=== PATIENT | male | born 1970 | race African-American/Black ===

== ENCOUNTER 2016-06-06 08:11 | Inpatient (IN) | payer BC ==
[~2016-06-06] VITALS: Ht 180.3 cm; Wt 98.9 kg
[2016-06-06] VITALS (11 sets, daily range): BP systolic 114–132; BP diastolic 49–90
[~2016-06-06 08:11] MED LIST: BUPIVACAINE-EPI 0.25%-1:200000 50 ML VIAL. ONE; CEFAZOLIN 2GM PREMIX 50 ML IV PRN; FENTANYL PF 100 MCG/2 ML VIAL. IV PRN; IV RINGERS,LACTATED 1000ML 1,000 ML IV SCH; LIDOCAINE 1% 1 ML SYRINGE. ID PRN; MORPHINE SULFATE 2 MG/ML DISP.SYRIN. IV PRN; ONDANSETRON PF 4 MG/2 ML VIAL. IV PRN; PRED20TA PO; PROAIR HFA8.5 GM INH; PROCHLORPERAZINE 10 MG/2 ML VIAL. IV PRN
[2016-06-06] MEDS ORDERED: LISI-334 PO (08:40)
[2016-06-06] MEDS ORDERED: PROPOFOL 20 ML IV ONE (08:50)
[2016-06-06] MEDS ORDERED: DEXAMETHASONE SOD PHOS 20 MG/5 ML VIAL. ONE (08:50)
[2016-06-06] MEDS ORDERED: MIDAZOLAM HCL 2 MG/2 ML VIAL. ONE (08:50)
[2016-06-06] MEDS ORDERED: ONDANSETRON PF 4 MG/2 ML VIAL. ONE (08:50)
[2016-06-06] MEDS ORDERED: FENTANYL PF 250 MCG/5 ML VIAL. ONE (08:50)
[2016-06-06] MEDS ORDERED: MULT-208 PO (08:50)
[2016-06-06] MEDS ORDERED: LIDOCAINE 2% 100 MG/5 ML DISP.SYRIN. ONE (08:50)
[2016-06-06] MEDS ORDERED: ROCURONIUM 50 MG/5 ML VIAL. ONE ×2 (08:50→09:52)
[2016-06-06] MEDS ORDERED: SEVOFLURANE 61 TO 120 MINUTES. IH ONE ×2 (08:51→10:36)
[2016-06-06] MEDS ORDERED: ACETAMINOPHEN INTRAVENOUS 100 ML IV ONE (08:54)
--- NOTE | 2016-06-06 09:01 | PDOC1 ---
History and Physical Date of Admission Date of Admission DATE: 06/06/16 TIME: 08:57 Identification/Chief Complaint Chief Complaint Painful bulge left groin Source Source: Patient History of Present Illness History of Present Illness 46 yo male with complaints of painful bulge left groin. Present for several years but getting worse with activity. Past Medical History Cardiovascular: HTN Past Surgical History Past Surgical History: Hernia Repair (right, and umbilical hernia repairs) Family History Family History: No Significant Social History Smoke: No ALCOHOL: rare Drugs: None Current Medications Current Medications Current Medications Ondansetron HCl (Zofran) 4 mg PRN Q6HRS PRN IV Nausea; Start 06/06/16 at 07:00 ; Stop 06/07/16 at 06:59 Fentanyl Citrate (Fentanyl 2ml Vial) 25 mcg PRN Q5MIN PRN IV MILD PAIN; Start 06/06/16 at 07:00; Stop 06/07/16 at 06:59 Fentanyl Citrate (Fentanyl 2ml Vial) 50 mcg PRN Q5MIN PRN IV MODERATE PAIN; Start 06/06/16 at 07:00; Stop 06/07/16 at 06:59 Morphine Sulfate 1 mg 1 mg PRN Q10MIN PRN IV SEVERE PAIN; Start 06/06/16 at 07: 00; Stop 06/07/16 at 06:59 Lactated Ringer's (Iv Lactated Ringers) 1,000 ml @ 0 mls/hr Q0M IV ; Start at 07:00; Stop 06/06/16 at 18:59 Lidocaine HCl 2 ml 1X PRN PRN ID IV START; Start 06/06/16 at 07:00; Stop at 06:59 Hydromorphone HCl (Dilaudid) 0.5 mg PRN Q10MIN PRN IV SEVERE PAIN, Second choice; Start 06/06/16 at 07:00; Stop 06/07/16 at 06:59 Prochlorperazine Edisylate 5 mg 5 mg PACU PRN PRN IV NAUSEA; Start 06/06/16 at 07:00; Stop 06/07/16 at 06:59 Cefazolin Sodium/ Dextrose (Ancef 2gm Premix) 50 ml @ 100 mls/hr 1X PREOP PRN IV PRIOR TO PROCEDURE; Start 06/06/16 at 06:00; Stop 06/06/16 at 18:00 Bupivacaine HCl/ Epinephrine Bitart (Marcaine-Epi 0.25%-1:890018) 50 ml STK-MED ONCE .ROUTE ; Start 06/06/16 at 07:18; Stop 06/06/16 at 07:19; Status DC Fentanyl Citrate (Fentanyl 5ml Vial) 250 mcg STK-MED ONCE .ROUTE ; Start at 08:50; Stop 06/06/16 at 08:51; Status DC Midazolam HCl (Versed) 2 mg STK-MED ONCE .ROUTE ; Start 06/06/16 at 08:50; Stop 06/06/16 at 08:51; Status DC Rocuronium Guthrie (Zemuron) 50 mg STK-MED ONCE .ROUTE ; Start 06/06/16 at 08:50 ; Stop 06/06/16 at 08:51; Status DC Dexamethasone Sodium Phosphate (Decadron) 20 mg STK-MED ONCE .ROUTE ; Start at 08:50; Stop 06/06/16 at 08:51; Status DC Ondansetron HCl (Zofran) 4 mg STK-MED ONCE .ROUTE ; Start 06/06/16 at 08:50; Stop 06/06/16 at 08:51; Status DC Lidocaine HCl 100 mg 100 mg STK-MED ONCE .ROUTE ; Start 06/06/16 at 08:50; Stop 06/06/16 at 08:51; Status DC Propofol (Diprivan) 20 ml @ As Directed STK-MED ONCE IV ; Start 06/06/16 at 08: 50; Stop 06/06/16 at 08:51; Status DC Sevoflurane 60 ml 60 ml STK-MED ONCE IH ; Start 06/06/16 at 08:51; Stop at 08:52; Status DC Acetaminophen (Ofirmev) 100 ml @ As Directed STK-MED ONCE IV ; Start 06/06/16 at 08:54; Stop 06/06/16 at 08:55; Status DC Active Scripts Active Proair Hfa Inhaler (Albuterol Sulfate) 8.5 Gm Hfa.aer.ad 1 Puff INH PRN Q6HRS PRN Reported Multi-Day Vitamins (Multivitamin) 1 Each Tablet 1 Tab PO DAILY Lisinopril 20 Mg Tablet 1 Tab PO DAILY Allergies Allergies: Coded Allergies: No Known Drug Allergies (Unverified , 06/04/16) ROS Genitourinary: YES Pain (left groin) Physical Exam General: Alert, Oriented X3, Cooperative, No acute distress HEENT: Atraumatic, PERRLA, EOMI Lungs: Clear to auscultation, Normal air movement Heart: RRR, no gallops, no murmurs Abdomen: Normal bowel sounds, Soft, No tenderness Male Genitals Exam: hernia (left) Rectal Exam: not examined Extremities: No clubbing, No cyanosis, No edema Skin: No significant lesion Neuro: Normal speech Psych/Mental Status: Mental status NL Vitals Vitals Vital Signs Date Time Temp Pulse Resp B/P Pulse Ox O2 Delivery O2 Flow Rate FiO2 06/06/16 08:46 98.5 80 20 158/91 96 Room Air 98.5 VTE Prophylaxis Ordered VTE Prophylaxis Devices: Yes VTE Pharmacological Prophylaxi: Contraindicated Assessment/Plan Assessment/Plan Left inguinal hernia Plan robotic assisted LIH repair with mesh. BETO KNIGHT MD Jun 06, 2016 09:01
[2016-06-06] MEDS ORDERED: SEVOFLURANE > 120 MINUTES. IH ONE ×2 (10:35→10:51)
[2016-06-06] MEDS ORDERED: GLYCOPYRROLATE 1 MG/5 ML VIAL. ONE (10:35)
[2016-06-06] MEDS ORDERED: NEOSTIGMINE METHYLSULFATE 5 MG/5 ML SYRINGE. ONE (10:35)
--- NOTE | 2016-06-06 11:09 | PDOC ---
BRIEF OPERATIVE NOTE Date: Jun 06, 2016 Pre-Op Diagnosis LIH Post-Op Diagnosis LIH and small bowel adhesions to umbilical hernia mesh with erosion into small bowel Procedure Performed Dx L/S with lysis of adhesions converted to open procedure with small bowel resection and removal of foreign body Surgeon Javy Anesthesia Type: General Blood Loss 30ml Specimens Obtained foreign body (mesh) Findings small bowel densely adhesed to previously placed mesh with erosion of the mesh into the small bowel Complications None BETO KNIGHT MD Jun 06, 2016 11:09
[2016-06-06] MEDS ORDERED: ONDANSETRON PF 4 MG/2 ML VIAL. IV PRN (11:15)
[2016-06-06] MEDS ORDERED: 0.9 % SODIUM CHLORIDE 10 ML DISP.SYRIN. IV PRN (11:15)
[2016-06-06] MEDS ORDERED: OXYCODONE/APAP 5/325 TABLET. PO PRN (11:15)
[2016-06-06] MEDS: FENTANYL PF 100 MCG/2 ML VIAL. IV PRN ×4 (11:22→12:18)
[2016-06-06] MEDS: KETOROLAC 15 MG/ML VIAL. IV SCH ×2 (12:25→17:21)
[2016-06-06] MEDS: MORPHINE SULFATE 2 MG/ML DISP.SYRIN. IV PRN (12:34)
[2016-06-06] MEDS: HYDROMORPHONE 2 MG/ML VIAL. IV PRN ×2 (12:52→13:17)
--- NOTE | 2016-06-06 14:16 | OP ---
DATE OF SURGERY: 06/06/2016 PREOPERATIVE DIAGNOSIS: Left inguinal hernia. POSTOPERATIVE DIAGNOSES: Left inguinal hernia, Adhesions to foreign body at the umbilicus with adhesed small bowel and foreign body eroded into the small bowel. SURGEON: Vincent Knight MD PROCEDURE: Diagnostic laparoscopy, laparoscopic lysis of adhesions converted to exploratory laparotomy with removal of foreign body and small bowel resection. INDICATIONS: The patient is a 46-year-old gentleman who was admitted in the hospital today for robotic-assisted laparoscopic left inguinal hernia repair. Procedure of this was explained to the patient in detail. Risks and benefits were also discussed including bleeding, infection, injury to intra-abdominal contents, possibly necessitating further open operations. Alternatives of this procedure were also discussed with the patient who seemed to understand and gave verbal and written consent to have the procedure performed. DESCRIPTION OF PROCEDURE: The patient was taken to the operating room and placed in the supine position, general anesthesia was initiated. Once the patient was asleep and intubated, he was then placed in the low lithotomy position. His abdomen was prepped and draped in the usual sterile fashion using ChloraPrep. An area just above the umbilicus was injected with 0.25% Marcaine with epinephrine. Incision was made with an 11 blade scalpel and a Veress needle was placed within the abdomen. On attempting to provide a pneumoperitoneum, there was some difficulty, was not insufflating, so at this point, placed a 5-mm Visiport under direct visualization, left mid abdomen and created a pneumoperitoneum. A 5-mm camera was placed within the abdomen. The abdomen was inspected. It was noted at the mid abdomen at the umbilicus that there was a lot of adhesions to the anterior abdominal wall with some foreign material hanging from the abdominal wall with a loop of bowel densely adherent to this material. At this point, 2 more 5-mm ports were placed, one in the epigastrium, one in the left upper abdomen. Using a grasper and EndoShears scissors, several of these adhesions were taken down until all that was left was, what appeared to be a piece of mesh and a loop of bowel densely adherent to the mesh. It was felt that this could not be resected laparoscopically, so converted to an open procedure. A midline incision was made just below the umbilicus to just above the umbilicus, carried down through the subcutaneous tissue, electrocautery for hemostasis. The abdomen was entered just above the umbilicus. A finger was placed. The loop of bowel was grasped and the incision was further opened protecting the bowel from injury. At this point, the mesh was then excised sharply from the fascia. Once the bowel and the mesh were freed up completely, it appeared that the mesh had eroded into the bowel and that there would be no way the bowel from the mesh without an enterotomy. So at this point, a small bowel resection was done, approximately 3 inches of bowel, the proximal and distal ends of this bowel were stapled and transected. The mesentery was tied with 4-0 silk ties and transected. The bowel and the mesh which were densely adherent together were sent for pathology. A ltie-li-edvl anastomosis was completed with the small bowel with a stapled anastomosis. The enterotomy was then closed with interlocking 3-0 Vicryl suture and oversewn with 3-0 silk Lemberts. It was returned to the abdomen and the fascia was closed with a running 0 looped Novafil. The skin was reapproximated with 4-0 subcuticular Monocryl at the midline incision and all port sites. It was felt at this point since there was open bowel, this was clean contaminated case, not to proceed with left inguinal hernia repair with mesh. The patient was awakened, extubated in the operating room, taken to recovery in stable condition. All sponge, instrument, and needle counts listed as correct. ESTIMATED BLOOD LOSS: 30 mL. VINCENT KNIGHT MD DR: ELLA/scott JOB#: [id number] / [id number] Baltazar Alves
[2016-06-06] MEDS: IV DEXTROSE 5%-LACT RINGERS 1,000 ML IV SCH (14:55)
[2016-06-07] MEDS: KETOROLAC 15 MG/ML VIAL. IV SCH ×4 (01:00→17:48)
[2016-06-07] MEDS: IV DEXTROSE 5%-LACT RINGERS 1,000 ML IV SCH ×3 (01:08→17:48)
[2016-06-07] MEDS: MORPHINE SULFATE 2 MG/ML DISP.SYRIN. IV PRN ×3 (03:02→19:47)
[2016-06-07 03:34] VITALS: BP 112/58
[2016-06-07 05:01] LABS: BASO % 0 % (0-3); EOS % 0 % (0-3); HEMATOCRIT 43.8 % (39.0-53.0); HEMOGLOBIN 14.3 g/dL (13.0-17.5); LYMPH # 0.7 x10^3/uL (1.0-4.8); LYMPH % 7 % (24-48); MEAN CORPUSCULAR HEMOGLOBIN 30 pg (25-35); MEAN CORPUSCULAR HGB CONC 33 g/dL (31-37); MEAN CORPUSCULAR VOLUME 91 fL (79-100); MONO % 11 % (0-9); NEUT % 81 % (31-73); PLATELET COUNT 165 x10^3/uL (140-400); RED BLOOD COUNT 4.83 x10^6/uL (4.30-5.70); RED CELL DISTRIBUTION WIDTH 13.5 % (11.5-14.5); WHITE BLOOD COUNT 10.7 x10^3/uL (4.0-11.0)
[2016-06-07 07:00] VITALS: BP 129/83
[2016-06-07 11:00] VITALS: BP 127/79
--- NOTE | 2016-06-07 11:45 | PDOC ---
SURGICAL PROGRESS NOTE Subjective Doing ok, some soreness. No nausea, passing flatus. Vital Signs Vital Signs Date Time Temp Pulse Resp B/P Pulse Ox O2 Delivery O2 Flow Rate FiO2 06/07/16 11:20 Room Air 06/07/16 11:00 98.2 65 18 127/79 92 98.2 06/07/16 07:40 3.0 I&O Intake and Output 06/07/16 07:00 Intake Total 2200 ml Output Total 1425 ml Balance 775 ml Intake Oral 100 ml IV Total 2100 ml Output Urine Total 1400 ml Estimated Blood Loss 25 ml PATIENT HAS A WALKER: No General: Alert, Oriented X3, Cooperative, mild distress Abdomen: Normal bowel sounds, Soft, Other (Incisional tenderness) Labs Laboratory Tests Test 06/07/16 04:50 White Blood Count 10.7x10^3/uL (4.0-11.0) Red Blood Count 4.83x10^6/uL (4.30-5.70) Hemoglobin 14.3g/dL (13.0-17.5) Hematocrit 43.8% (39.0-53.0) Mean Corpuscular Volume 91fL (79-100) Mean Corpuscular Hemoglobin 30pg (25-35) Mean Corpuscular Hemoglobin Concent 33g/dL (31-37) Red Cell Distribution Width 13.5% (11.5-14.5) Platelet Count 165x10^3/uL (140-400) Neutrophils (%) (Auto) 81% (31-73) Lymphocytes (%) (Auto) 7% (24-48) Monocytes (%) (Auto) 11% (0-9) Eosinophils (%) (Auto) 0% (0-3) Basophils (%) (Auto) 0% (0-3) Neutrophils # (Auto) 8.7x10^3uL (1.8-7.7) Lymphocytes # (Auto) 0.7x10^3/uL (1.0-4.8) Monocytes # (Auto) 1.2x10^3/uL (0.0-1.1) Eosinophils # (Auto) 0.0x10^3/uL (0.0-0.7) Basophils # (Auto) 0.0x10^3/uL (0.0-0.2) Laboratory Tests Test 06/07/16 04:50 White Blood Count 10.7x10^3/uL (4.0-11.0) Red Blood Count 4.83x10^6/uL (4.30-5.70) Hemoglobin 14.3g/dL (13.0-17.5) Hematocrit 43.8% (39.0-53.0) Mean Corpuscular Volume 91fL (79-100) Mean Corpuscular Hemoglobin 30pg (25-35) Mean Corpuscular Hemoglobin Concent 33g/dL (31-37) Red Cell Distribution Width 13.5% (11.5-14.5) Platelet Count 165x10^3/uL (140-400) Neutrophils (%) (Auto) 81% (31-73) Lymphocytes (%) (Auto) 7% (24-48) Monocytes (%) (Auto) 11% (0-9) Eosinophils (%) (Auto) 0% (0-3) Basophils (%) (Auto) 0% (0-3) Neutrophils # (Auto) 8.7x10^3uL (1.8-7.7) Lymphocytes # (Auto) 0.7x10^3/uL (1.0-4.8) Monocytes # (Auto) 1.2x10^3/uL (0.0-1.1) Eosinophils # (Auto) 0.0x10^3/uL (0.0-0.7) Basophils # (Auto) 0.0x10^3/uL (0.0-0.2) Problem List Problems Medical Problems: (1) Intestinal adhesions Status: Acute Assessment/Plan S/P xlap removal of mesh and small bowel resection Doing well Start clear liquids. Problems: BTEO KNIGHT MD Jun 07, 2016 11:45
[2016-06-07 15:00] VITALS: BP 127/81
[2016-06-07] MEDS: OXYCODONE/APAP 5/325 TABLET. PO PRN (17:51)
[2016-06-07 19:25] VITALS: BP 121/69
[2016-06-07 23:30] VITALS: BP 122/86
[2016-06-08] MEDS: KETOROLAC 15 MG/ML VIAL. IV SCH ×3 (01:20→06:04)
[2016-06-08 03:28] VITALS: BP 138/89
[2016-06-08] MEDS: OXYCODONE/APAP 5/325 TABLET. PO PRN ×2 (06:06→11:37)
[2016-06-08] MEDS: IV DEXTROSE 5%-LACT RINGERS 1,000 ML IV SCH (06:07)
[2016-06-08 07:00] VITALS: BP 141/98
[2016-06-08 11:00] VITALS: BP 144/96
--- NOTE | 2016-06-08 13:56 | PDOC ---
Provider Note Provider Note +flatus. feels well, really wanting to go home tonight. is very disappointed at the thought of staying until tomorrow. bhumika clears without n/v or abd pain low grade temp ~100 today. vss. he appears well, no distress abd soft nd nt inc cdi a/p soft diet if does well and remains afeb, then i agreed to dc him to home at his urging. TREE ORTEGA MD Jun 08, 2016 13:55
[2016-06-08] MEDS ORDERED: OXYC-323 PO (13:58)
[2016-06-08 15:00] VITALS: BP 143/101
--- NOTE | 2016-06-10 15:12 | PATHOLOGY ---
PATHOLOGY REPORT * * * * * * * * FINAL DIAGNOSIS: Segment of small intestine and attached mesentery, segmental resection: - Foreign material (mesh) adhesed to small bowel serosa. - Focal recent submucosal hemorrhage. (JPM:; d/t: 06/10/16) REPORT ELECTRONICALLY SIGNED BY: Esa Serrano M.D. DATE/TIME: 06/10/2016 15:11 * * * * * * * * GROSS PATHOLOGY: The specimen is received in formalin labeled "Abner Pak, small bowel and foreign-body". Received is a segment of small bowel measuring 4.2 cm in length by 2.0 cm in diameter. Both margins are stapled closed. The attached mesenteric fat measures 2.0 cm in thickness. The serosal surface is pink-horne, smooth and glistening in appearance. Opening the specimen reveals light horne to pink-horne mucosa with normal architectural folds. Sectioning reveals a moderate amount of underlying hemorrhage. Attached to serosa is a moderate amount of mesh-like material measuring 4.8 x 3.8 cm. The specimen is submitted representatively as follows: A1 both margins A2-A3 fraud representative sections of mucosa, with sections with hemorrhage and submitted in cassette A2. Gross photographs are taken. (CAA; 06/08/2016) INITIAL CPT CODE(S): 69224 Professional services [place] [address] Technical services performed by [facility] at [address] [place] [address] [address] [address]. SPECIMEN(S) RECEIVED: A.Small bowel and foreign body CLINICAL HISTORY: Left inguinal hernia PATIENT: ABNER PAK /AGE: 1003/01/1970 (Age: 46) PATIENT #: [id number] ALT CASE #: SPECIMEN COLLECTION DATE: 06/06/2016 SPECIMEN RECEIVED DATE: 06/06/2016 [facility] [place] [address] - PHONE: [phone] * * * END OF REPORT * * *
== END 2016-06-08 16:10 | disposition home or self-care (01) | DRG 331 ==
LOC: SURG 08:11 → 4 NORTH 11:35
PROVIDERS: ADMIT Surgery; ATTEND Surgery
PROC: 0DPD0JZ Removal of Synthetic Substitute from Lower Intestinal Tract, Open Approach (ICD-10-PCS; 2016-06-06)
PROC: 0YJ64ZZ Inspection of Left Inguinal Region, Percutaneous Endoscopic Approach (ICD-10-PCS; 2016-06-06)
PROC: 0DB80ZZ Excision of Small Intestine, Open Approach (ICD-10-PCS; principal; 2016-06-06 09:30)
DX: K40.90 Unilateral inguinal hernia, without obstruction or gangrene, not specified as recurrent (principal); I10 Essential (primary) hypertension; K66.0 Peritoneal adhesions (postprocedural) (postinfection); K66.8 Other specified disorders of peritoneum; Z53.31 Laparoscopic surgical procedure converted to open procedure
CPT/HCPCS: 36415; 85027; J0131; J0690; J0780; J1100; J1170; J1885; J2250; J2270; J2405; J2704; J2710; J3010; J3490; J7120

== ENCOUNTER 2016-12-31 09:30 | Emergency (ER) | payer BC, OTHER ==
[~2016-12-31] VITALS: Ht 180.3 cm; Wt 99.8 kg
[~2016-12-31 09:30] MED LIST changes: -BUPIVACAINE-EPI 0.25%-1:200000 50 ML VIAL. ONE; -CEFAZOLIN 2GM PREMIX 50 ML IV PRN; -FENTANYL PF 100 MCG/2 ML VIAL. IV PRN; -IV RINGERS,LACTATED 1000ML 1,000 ML IV SCH; -LIDOCAINE 1% 1 ML SYRINGE. ID PRN; +LISI-334 PO; -MORPHINE SULFATE 2 MG/ML DISP.SYRIN. IV PRN; +MULT-208 PO; -ONDANSETRON PF 4 MG/2 ML VIAL. IV PRN; +OXYC-323 PO; -PROCHLORPERAZINE 10 MG/2 ML VIAL. IV PRN
[2016-12-31 09:47] VITALS: BP 168/81
[2016-12-31] MEDS ORDERED: PRED20TA PO (10:50)
--- NOTE | 2016-12-31 10:50 | PHYS DOC ---
Past Medical History Past Medical History: Hypertension Additional Past Medical Histor: Pt states he stopped taking antihypertensives Past Surgical History: Other Additional Past Surgical Histo: hernia repair x3 Alcohol Use: Occasionally Drug Use: None Adult General Chief Complaint Chief Complaint: SKIN RASH/ABSCESS [facility] Patient is a 46 year old male presents to emergency department stating he has had a rash for the last week on bilateral hands and bilateral feet. He states that they started once the weather certainly can really hot. 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 He states that the areas to become very irritated and tingling. He states that there is been no drainage or discharge from the sites. He does state that the area appears to be slightly scaly at this time. Patient denies fever, chills or any nausea vomiting. He denies any family members with any type or rashes. He has tried powder to help with the irritation. Review of Systems Review of Systems Constitutional: Denies fever or chills [] Eyes: Denies change in visual acuity, redness, or eye pain [] HENT: Denies nasal congestion or sore throat [] Respiratory: Denies cough or shortness of breath [] Cardiovascular: No additional information not addressed in HPI [] GI: Denies abdominal pain, nausea, vomiting, bloody stools or diarrhea [] : Denies dysuria or hematuria [] Musculoskeletal: Denies back pain or joint pain [] Integument: rash bilateral hands and bilateral feet denies skin lesions [] Neurologic: Denies headache, focal weakness or sensory changes [] Endocrine: Denies polyuria or polydipsia [] Allergies Allergies Allergies Coded Allergies Type Severity Reaction Last Updated Verified No Known Drug Allergies 06/04/16 No Physical Exam Physical Exam Constitutional: Well developed, well nourished, no acute distress, non-toxic appearance. [] HENT: Normocephalic, atraumatic, bilateral external ears normal, oropharynx moist, no oral exudates, nose normal. [] Eyes: PERRLA, EOMI, conjunctiva normal, no discharge. [] Neck: Normal range of motion, no tenderness, supple, no stridor. [] Cardiovascular:Heart rate regular rhythm, no murmur [] Lungs & Thorax: Bilateral breath sounds clear to auscultation [] Skin: Warm, dry, no erythema. Patient with red raised rash with scaly area over bilateral feet and bilateral hands. Back: No tenderness Extremities: No tenderness, no cyanosis, no clubbing, ROM intact, no edema. [] Neurologic: Alert and oriented X 3, normal motor function, normal sensory function, no focal deficits noted. [] Psychologic: Affect normal, judgement normal, mood normal. [] Current Patient Data Vital Signs Vital Signs Date Time Temp Pulse Resp B/P (MAP) Pulse Ox O2 Delivery O2 Flow Rate FiO2 12/31/16 09:47 98.2 76 18 98 Room Air 98.2 EKG EKG [] Radiology/Procedures Radiology/Procedures [] Course & Med Decision Making Course & Med Decision Making Pertinent Labs and Imaging studies reviewed. (See chart for details) Patient was encouraged to keep the area clean and dry. Keep the area cool. Medication as prescribed. Benadryl may also help with itching and irritation. However benadryl will cause drowsiness do not take if you need to be alert and oriented. Signs and symptoms to return to the emergency department has been provided. Patient was recommended to followup with adult ministries director in 3-5 days. All questions and concerns have been addressed at patients bedside. Dragon Disclaimer Dragon Disclaimer This electronic medical record was generated, in whole or in part, using a voice recognition dictation system. Departure Departure Impression: Primary Impression: Rash Disposition: 01 HOME, SELF-CARE Condition: STABLE Referrals: UNKNOWN PCP NAME (PCP) Patient Instructions: Rash, [id number] Additional Instructions: Activity as tolerated Medication as prescribed Bendaryl 25 mg every 6 hours as needed for itching, irritation of the rash Keep the area clean and dry. Keeping the are cool will also help decrease the redness Followup with adult ministries director in 3-5 days Return to emergency department as needed for signs and symptoms that become worse. Scripts Prednisone (PREDNISONE) 20 Mg Tablet 40 MG PO DAILY, #14 TAB Prov: KISHAN WOODARD APRN 12/31/16 KISHAN WOODARD APRN Dec 31, 2016 10:50
[2016-12-31] MEDS ORDERED: TRIA15OI TP (11:03)
== END 2016-12-31 11:13 | disposition home or self-care (01) ==
LOC: ER 09:30
DX: R21 Rash and other nonspecific skin eruption (principal); R20.2 Paresthesia of skin; I10 Essential (primary) hypertension
CPT/HCPCS: 99283

== ENCOUNTER 2019-11-04 13:48 | Emergency (ER) | payer BC, OTHER ==
[~2019-11-04] VITALS: Ht 180.3 cm; Wt 105.0 kg
[~2019-11-04 13:48] MED LIST changes: +ALBU2.5V8 INH; -OXYC-323 PO; +OXYC1TAB15 PO; -PROAIR HFA8.5 GM INH; +TRIA15OI TP
[2019-11-04] MEDS ORDERED: ORPHENADRINE CITRATE 60 MG/2 ML VIAL. IM ONE (15:15)
[2019-11-04] MEDS ORDERED: KETOROLAC 60 MG/2 ML VIAL. IM ONE (15:15)
--- NOTE | 2019-11-04 15:15 | PHYS DOC ---
Past Medical History Past Medical History: No Pertinent History, Hypertension Additional Past Medical Histor: Pt states he stopped taking antihypertensives Past Surgical History: Other Additional Past Surgical Histo: hernia repair x3 Smoking Status: Never Smoker Alcohol Use: Occasionally Drug Use: None General Adult EDM: Chief Complaint: HIP PAIN HPI: HPI: Patient is a 49 year old male who presents with right groin and hip pain for the last 3 months. Patient reports that pain is intermittent but has worsened over the last couple days. Patient reports that he gets a charley horse sensation in his right groin and it is worse with movement and activity. 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 Patient reports that whenever he leans on his right side while driving the forklift he gets a sharp pain in his right groin. At times when he lays on his right side he does get numbness to his right great toe. Patient denies any history of injury to right hip. Patient denies any loss of bowel or bladder, saddle paresthesias, back pain, spinal bony tenderness, testicular pain, penile discharge, dysuria, hematuria abdominal pain, numbness in abdomen, swelling in the groin. Patient is able to bear weight and ambulate with steady gait. Patient has history of right inguinal hernia repair. Patient describes pain as a sharp pain and rates it 5 out of 10, he reports that it is better with rest and ibuprofen. Review of Systems: Review of Systems: Constitutional: Denies fever or chills. [] Eyes: Denies change in visual acuity. [] HENT: Denies nasal congestion or sore throat. [] Respiratory: Denies cough or shortness of breath. [] Cardiovascular: Denies chest pain or edema. [] GI: Denies abdominal pain, nausea, vomiting, or diarrhea. [] : Denies dysuria. [] Musculoskeletal: Denies back pain, reports right groin pain. [] Integument: Denies rash. [] Neurologic: Denies headache, focal weakness or sensory changes. [] Lymphatic: Denies swollen glands. [] Psychiatric: Denies depression or anxiety. [] Heart Score: Risk Factors: Risk Factors: DM, Current or recent (<one month) smoker, HTN, HLP, family history of CAD, obesity. Risk Scores: Score 0 - 3: 2.5% MACE over next 6 weeks - Discharge Home Score 4 - 6: 20.3% MACE over next 6 weeks - Admit for Clinical Observation Score 7 - 10: 72.7% MACE over next 6 weeks - Early Invasive Strategies Allergies: Allergies: Allergies Coded Allergies Type Severity Reaction Last Updated Verified No Known Drug Allergies 06/04/16 No Physical Exam: PE: Constitutional: Well developed, well nourished, no acute distress, non-toxic appearance. [] HENT: Normocephalic, atraumatic, bilateral external ears normal, nose normal. [] Eyes: PERRLA, EOMI, conjunctiva normal, no discharge. [] Neck: Normal range of motion, no stridor. [] Cardiovascular:Heart rate regular rhythm Lungs & Thorax: Respirations even and unlabored, no retractions, no respiratory distress Abdomen: soft, no tenderness : Right groin: Nontender to palpation, no palpable mass or hernia Back: No bony tenderness, no paraspinal tenderness, no increase in discomfort with straight leg test Skin: Warm, dry, no erythema, no rash. [] Extremities: No cyanosis, ROM intact, no edema, Neurologic: Alert and oriented X 3, no focal deficits noted. [] Psychologic: Affect normal, judgement normal, mood normal. [] Current Patient Data: Vital Signs: Vital Signs Date Time Temp Pulse Resp B/P (MAP) Pulse Ox O2 Delivery O2 Flow Rate FiO2 11/04/19 14:14 98.5 85 16 174/94 (120) 96 Room Air 98.5 EKG: EKG: [] Radiology/Procedures: Radiology/Procedures: PROCEDURE: EXT NON VASC RIGHT Ultrasound of the right inguinal region/right lower quadrant of the abdomen 11/04/2019 CLINICAL HISTORY: Right groin pain for 3 months. TECHNIQUE: A real-time ultrasound examination of the right lower quadrant of the abdomen in the area where the patient feels pain was performed. Multiple images were obtained. FINDINGS: Evaluation of the right lower quadrant is limited to some degree due to overlying bowel gas. No abnormal soft tissue mass or fluid collection is seen. IMPRESSION: Negative study. [] Course & Med Decision Making: Course & Med Decision Making Pertinent Labs and Imaging studies reviewed. (See chart for details) Patient is a 49-year-old male coming in for right groin and hip pain for the last 3 months. Patient reports that pain is worse when leaning onto right side, after activity and movement. Patient describes pain as a charley horse sensation and occasionally has right great toe numbness. Patient reports that symptoms improved with 800 mg of ibuprofen and rest. Patient does have a history of a right inguinal hernia repair with mesh. Upon assessment patient does not have any pain with palpation of hip and back and pelvis. Patient does not have any bulging noted upon inspection of right groin. Neuro intact to right leg. Will obtain ultrasound of right groin to ensure that mesh is still intact. 60 mg of IM Norflex and 30 mg of IM Toradol ordered. Ultrasound revealed no acute findings. The patient reported relief of pain after the IM medications were given. Prescriptions will be written for orphenadrine and naproxen. Patient given education about inguinal strain. Rec ommend follow-up with primary care doctor next week, return to the ER if symptoms worsen. Patient verbalized an understanding of home care, medications, follow-up, and return to ED instructions and was in agreement with the plan of care. [] Dragon Disclaimer: Dragon Disclaimer: This electronic medical record was generated, in whole or in part, using a voice recognition dictation system. Departure Departure Impression: Primary Impression: Strain of right groin Additional Impression: Hypertension Disposition: 01 HOME, SELF-CARE Condition: STABLE Referrals: Harriet SMITH MD (PCP) Patient Instructions: Hypertension, [id number], Inguinal Strain Additional Instructions: Fill the prescriptions and use them as directed. Activity as tolerated. Follow-up with your primary care doctor next week for reevaluation and further treatment of high blood pressure. Return to the ER if symptoms worsen or you develop a fever. Scripts Naproxen (NAPROXEN) 500 Mg Tablet 1 TAB PO BID PRN for PAIN for 10 Days, #20 TAB 0 Refills Prov: GUILHERME WILDE APRN 11/04/19 Orphenadrine Citrate (ORPHENADRINE CITRATE) 100 Mg Tablet.er 1 TAB PO BID PRN for PAIN for 10 Days, #20 TAB 0 Refills Prov: GUILHERME WILDE APRN 11/04/19 Justicifation of Admission Dx: Justifications for Admission: Justification of Admission Dx: N/A GUILHERME WILDE APRN Nov 04, 2019 15:14
--- NOTE | 2019-11-04 15:20 | RAD ---
Ultrasound of the right inguinal region/right lower quadrant of the abdomen 11/04/2019 CLINICAL HISTORY: Right groin pain for 3 months. TECHNIQUE: A real-time ultrasound examination of the right lower quadrant of the abdomen in the area where the patient feels pain was performed. Multiple images were obtained. FINDINGS: Evaluation of the right lower quadrant is limited to some degree due to overlying bowel gas. No abnormal soft tissue mass or fluid collection is seen. IMPRESSION: Negative study. Electronically signed by: Talon Rondon MD (11/04/2019 3:17 PM) [id number]
[2019-11-04 15:35] VITALS: BP 164/96
[2019-11-04] MEDS ORDERED: ORPH100T PO (15:38)
[2019-11-04] MEDS ORDERED: NAPR-514 PO (15:38)
== END 2019-11-04 15:53 | disposition home or self-care (01) ==
LOC: ER 13:48
DX: S39.011A Strain of muscle, fascia and tendon of abdomen, initial encounter (principal); M25.551 Pain in right hip; R10.31 Right lower quadrant pain; R20.0 Anesthesia of skin; I10 Essential (primary) hypertension; Z98.890 Other specified postprocedural states; X50.0XXA Overexertion from strenuous movement or load, initial encounter; Y93.89 Activity, other specified; Y92.89 Other specified places as the place of occurrence of the external cause; Y99.0 Civilian activity done for income or pay
CPT/HCPCS: 76881; 96372; 99284; J1885; J2360

== ENCOUNTER → 2019-11-23 | Outpatient (CLI) | payer BC ==
[2019-11-04 15:35] VITALS: BP 164/96
[~2019-11-23] MED LIST changes: +NAPR-514 PO; +ORPH100T PO
--- NOTE | 2019-11-23 16:00 | KCIC ---
INDICATION: Reason: LUMBOSACRAL RADICULOPATHY / Spl. Instructions: Persistant, sharp right hip and groin pain in recent weeks. / History: COMPARISON: None. IMPRESSION: Pelvis: 2 views obtained. No acute fracture or dislocation. Lumbar spine: 5 views obtained. Mild degenerative changes with osteophyte formation at the vertebral body endplates as well as facet hypertrophy. No evidence of acute fracture or dislocation. Electronically signed by: Paul Ascencio MD (11/23/2019 3:57 PM) [id number]
== END | disposition home or self-care (01) ==
LOC: KCIC 10:17
PROVIDERS: ATTEND Family Medicine
DX: M47.27 Other spondylosis with radiculopathy, lumbosacral region (principal); M25.78 Osteophyte, vertebrae; R10.31 Right lower quadrant pain; M25.551 Pain in right hip
CPT/HCPCS: 72110; 72170

== ENCOUNTER 2020-03-01 08:41 | Emergency (ER) | payer BC ==
[~2020-03-01] VITALS: Ht 180.3 cm; Wt 109.0 kg
[2020-03-01 09:15] VITALS: BP 147/93
--- NOTE | 2020-03-01 09:44 | RAD ---
EXAM: FOOT RIGHT 3V 03/01/2020 9:14 AM CLINICAL INDICATION:Pain COMPARISON:None TECHNIQUE:3 views of the right forefoot FINDINGS: Hallux valgus is noted. There is a small juxta-articular erosion at the great toe interphalangeal joint. There is cortical indistinctness and irregularity of the great toe metatarsal head medially on AP view. No other evidence of fracture or osseous destruction, or erosions. Joint spaces are maintained. Bone mineralization is normal. There is dorsal and medial soft tissue swelling at the great toe MTP joint. IMPRESSION:Cortical indistinctness and irregularity of the great toe metatarsal head medially with overlying soft tissue swelling. This could represent a subtle fracture, although not well seen on all views, or osteomyelitis if there is concern for infection. This could also be related to inflammatory arthropathy such as gout given the presence of a small juxta-articular erosion seen at the great toe interphalangeal joint. Electronically signed by: Zully Lopez MD (03/01/2020 9:41 AM) [id number]
[2020-03-01] MEDS ORDERED: COLCHICINE 0.6 MG TABLET PO ONE (10:30)
--- NOTE | 2020-03-01 10:34 | ED.ADGEN ---
Past Medical History Past Medical History: Hypertension Additional Past Medical Histor: gout Past Surgical History: Other Additional Past Surgical Histo: hernia repair x4 Smoking Status: Never Smoker Alcohol Use: Occasionally Drug Use: None General Adult EDM: Chief Complaint: FOOT INJURY PAIN HPI: HPI: Patient is a 50-year-old male with past medical history of gout who presents to the emergency room complaining of right toe pain that started last week when he stubbed his toe on furniture. He states it has been ongoing and has not improved. He has not been able to work due to significant pain. He denies any other injuries. He has not had any streaking. Review of Systems: Review of Systems: Negative other than noted Current Medications: Current Medications Medications (Trade) Dose Ordered Sig/Ladan Start Time Stop Time Status Last Admin Dose Admin Colchicine (Colcrys) 1.2 mg 1X ONCE 03/01/20 10:30 03/01/20 10:31 DC 03/01/20 10:55 1.2 MG Allergies: Allergies: Allergies Coded Allergies Type Severity Reaction Last Updated Verified No Known Drug Allergies 06/04/16 No Physical Exam: PE: General: Awake, alert, NAD. Well Nourished, well hydrated. Cooperative HEENT: Atraumatic, EOMI, PERRL, airway patent, moist oral mucosa Neck: Supple, trachea midline Respiratory: CTA bilaterally, normal effort, no wheezing/crackles CV: RRR, no murmur, cap refill <2 GI: Soft, nondistended, nontender, no masses MSK: Right foot: Right big toe swollen with erythema and tenderness Skin: Warm, dry, intact Neuro: A&O x3, speech NL, sensory and motor grossly intact, no focal deficits Psych: Normal affect, normal mood, not suicidal or homicidal Current Patient Data: Vital Signs: Vital Signs Date Time Temp Pulse Resp B/P (MAP) Pulse Ox O2 Delivery O2 Flow Rate FiO2 03/01/20 09:15 97.2 72 16 147/93 (111) 95 Room Air 97.2 EKG: EKG: [] Heart Score: Risk Factors: Risk Factors: DM, Current or recent (<one month) smoker, HTN, HLP, family history of CAD, obesity. Risk Scores: Score 0 - 3: 2.5% MACE over next 6 weeks - Discharge Home Score 4 - 6: 20.3% MACE over next 6 weeks - Admit for Clinical Observation Score 7 - 10: 72.7% MACE over next 6 weeks - Early Invasive Strategies Radiology/Procedures: Radiology/Procedures: [] Course & Med Decision Making: Course & Med Decision Making Pertinent Labs and Imaging studies reviewed. (See chart for details) Patient is 50-year-old male who presents to the emergency room with right toe pain. Patient has some erythema and swelling noted. This could be related to gout or fracture. X-ray is concerning for either. We will place him in a hard soled shoe and give him a dose of colchicine for gout. Patient's test results and vitals while in the ED were fully reviewed and discussed with the patient. Patient is stable and at this time does not need admission to the hospital. We have discussed strict return precautions and the importance of following up with their Primary Care Physician. Patient stated understanding and was given an opportunity to ask any questions. Patient is in agreement with plan. Dragon Disclaimer: Dragon Disclaimer: This electronic medical record was generated, in whole or in part, using a voice recognition dictation system. Departure Departure Impression: Primary Impression: Gout Additional Impression: Toe fracture Disposition: 01 DC HOME SELF CARE/HOMELESS Condition: STABLE Referrals: Harriet SMITH MD (PCP) Patient Instructions: Gout, Toe Fracture Problem Qualifiers LOLA CLEMENS MD Mar 01, 2020 10:34
== END 2020-03-01 11:00 | disposition home or self-care (01) ==
LOC: ER 08:41
DX: S92.491A Other fracture of right great toe, initial encounter for closed fracture (principal); I10 Essential (primary) hypertension; M10.9 Gout, unspecified; M20.11 Hallux valgus (acquired), right foot; W22.8XXA Striking against or struck by other objects, initial encounter; Y93.89 Activity, other specified; Y92.89 Other specified places as the place of occurrence of the external cause; Y99.8 Other external cause status
CPT/HCPCS: 73630; 99283

== ENCOUNTER → 2021-07-12 | Outpatient (CLI) | payer BC ==
[~2021-07-12] MED LIST changes: -LISI-334 PO; +LISI20TA18 PO
--- NOTE | 2021-07-12 11:22 | KCIC ---
XR CHEST 2V INDICATION: Nonproductive cough 1 week, nonsmoker, hx. Covid, May 2021. . COMPARISON STUDY: 02/13/2016. FINDINGS: Lungs: Low lung volume. No pulmonary mass or consolidation. The tracheobronchial tree and hilar struc tures are normal. Pleura: No pleural effusion or pneumothorax. Heart and Mediastinum: The cardiomediastinal silhouette is normal. The great vessels of the thorax ar e normal. Bones and Soft Tissues: The bones and soft tissues are within normal limits. IMPRESSION: Low lung volume. No consolidation. Electronically signed by: Vishnu Thompson MD (07/12/2021 11:20 AM) [id number]
== END ==
LOC: KCIC 10:09
PROVIDERS: ATTEND Family Medicine
DX: R05.9 Cough, unspecified (principal); Z86.16 Personal history of COVID-19
CPT/HCPCS: 71046